=== PATIENT | female | born 2000 | race Hispanic/Latino ===

== ENCOUNTER 2021-08-05 13:15 | Day surgery (SDC) | payer OTHER ==
[2021-08-05 13:48] VITALS: BMI 35.8
== END 2021-08-05 17:53 | disposition home or self-care (01) ==
LOC: CSHLD/OP 13:15
PROVIDERS: ATTEND Family Medicine
DX: O36.5930 Maternal care for other known or suspected poor fetal growth, third trimester, not applicable or unspecified (principal); Z3A.35 35 weeks gestation of pregnancy
CPT/HCPCS: 76815; 76819

== ENCOUNTER 2021-08-23 14:53 | Outpatient (CLI) | payer OTHER ==
[2021-08-24 11:36] LABS: SARS-CoV-2 PCR by NAA Not Detected (NotDetected)
== END 2021-08-23 14:54 | disposition home or self-care (01) ==
LOC: CSHLAB 14:53
PROVIDERS: ATTEND Family Medicine
DX: Z20.822 Contact with and (suspected) exposure to COVID-19 (principal)
CPT/HCPCS: U0003; U0005

== ENCOUNTER 2021-08-25 11:38 | Inpatient (IN) | payer OTHER ==
[2021-08-26 01:27] VITALS: BMI 35.8
[2021-08-26] MEDS ORDERED: Misoprostol 100 MCG TAB ONE (02:04)
[2021-08-26] MEDS ORDERED: Acetaminophen 500 MG TAB PO PRN (02:29)
[2021-08-26] MEDS ORDERED: Carboprost 250 MCG/ML AMP IM PRN (02:29)
[2021-08-26] MEDS ORDERED: NS w/ Oxytocin 30 units 500 ML IV SCH ×2 (02:29)
[2021-08-26] MEDS ORDERED: hydrALAZINE 20 MG/ML VIAL SLOW IVP PRN (02:29)
[2021-08-26] MEDS ORDERED: Methylergonovine 0.2 MG/ML VIAL IM PRN (02:29)
[2021-08-26] MEDS ORDERED: NS w/ Oxytocin 30 units 500 ML IVPB SCH (02:29)
[2021-08-26] MEDS ORDERED: Lidocaine 1% (PF) 30 ML VIAL SC PRN (02:29)
[2021-08-26] MEDS ORDERED: Ondansetron PF 4 MG/2 ML Vial IVP PRN ×3 (02:29→23:54)
[2021-08-26] MEDS ORDERED: Promethazine HCl 25 MG/ML VIAL IM PRN ×3 (02:29→23:54)
[2021-08-26] MEDS ORDERED: Diphenoxylate HCl/Atropine Tablet PO PRN (02:29)
[2021-08-26] MEDS ORDERED: HYDROcodone/Acetaminophen 5/325 mg Tablet PO PRN (02:29)
[2021-08-26] MEDS ORDERED: Lactated Ringer's 1,000 ML IV SCH (02:29)
[2021-08-26] MEDS ORDERED: Misoprostol 200 MCG TAB PR PRN (02:29)
[2021-08-26] MEDS ORDERED: Ibuprofen 800 MG TAB PO PRN (02:29)
[2021-08-26] MEDS ORDERED: Penicillin G Potassium 5 MILL.UNITS VIAL ONE (03:15)
[2021-08-26 03:25] LABS: Hemoglobin 11.5 g/dL (12.0-15.5); Mean Corpuscular HGB CONC 32.4 g/dL (32.0-36.0); Mean Corpuscular Hemoglobin 30.2 pg (27.0-33.0); Mean Corpuscular Volume 93.2 fl (81.6-98.3); Mean Platelet Volume 10.2 fl (7.4-10.4); Platelet Count 350 10x3/uL (150-450); RBC Distribution Width 14.5 % (11.5-14.5); Red Blood Cell (RBC) Count 3.81 10x6/uL (3.90-5.03); White Blood Cell (WBC) Count 12.6 10x3/uL (3.5-10.5)
[2021-08-26 03:50] LABS: Hep B Surf Ag Non-Reactive S/CO (NonReactive); Syphilis Antibody Nonreactive (Nonreactive); Syphilis Antibody Index 0.03 S/CO (<1.00 Non-Reactive)
[2021-08-26 03:54] LABS: HBSAg Index 0.14 S/CO (0-0.99)
[2021-08-26] MEDS ORDERED: Penicillin G Potassium 5 MILL.UNITS in Sodium Chloride 0.9% 100 ML IVPB SCH (04:00)
[2021-08-26] MEDS: Penicillin G 2.5 MILL.units 2.5 MILL.UNITS in Premix Bag 1 BAG IVPB SCH ×4 (08:17→20:55)
[2021-08-26] MEDS: Butorphanol Tartrate 1 MG/ML VIAL SLOW IVP PRN ×2 (17:23→19:30)
[2021-08-26] MEDS ORDERED: Fentanyl 2 mcg/Bup 0.1% Cadd 100 ML ONE (20:02)
[2021-08-26] MEDS ORDERED: diphenhydrAMINE 50 MG/ML VIAL IVP PRN ×2 (20:56→23:54)
[2021-08-26] MEDS ORDERED: Hydrocerin (Eucerin) Cream 120 gm Jar TOP PRN ×2 (20:56→23:54)
[2021-08-26] MEDS ORDERED: Lactated Ringer's 500 ML IV PRN (20:56)
[2021-08-26] MEDS ORDERED: Acetaminophen 325 MG TAB PO PRN (20:56)
[2021-08-26] MEDS ORDERED: ePHEDrine Sulfate 50 MG/10 ML VIAL SLOW IVP PRN (20:56)
[2021-08-26] MEDS ORDERED: Naloxone HCl 0.4 mg/ml Vial IVP PRN ×4 (20:56→23:54)
[2021-08-26] MEDS ORDERED: Fentanyl 2 mcg/Bupivacaine 0.1% Cassette 100 ML EPIDURAL SCH (21:00)
[2021-08-26] MEDS ORDERED: Communication Order-Pharmacy FS SCH ×2 (21:00→23:45)
[2021-08-26] MEDS ORDERED: Azithromycin 500 MG VIAL ONE (23:22)
[2021-08-26] MEDS ORDERED: ceFAZolin 2 GM/Dextrose 50 ML IVPB ONE (23:22)
[2021-08-26] MEDS ORDERED: Oxytocin 10 UNITS/ML VIAL ONE (23:28)
[2021-08-26] MEDS ORDERED: Morphine PF 10 MG/10 ML VIAL ONE (23:28)
[2021-08-26] MEDS ORDERED: PHENYLEPHRINE-NS 100 MCG/ML 10 ML SYRINGE ONE (23:28)
[2021-08-26] MEDS ORDERED: Famotidine/PF 20 mg/2ml Vial SLOW IVP PRN (23:36)
[2021-08-26] MEDS ORDERED: Bicitra 30 ML UDCUP PO PRN (23:36)
[2021-08-26] MEDS ORDERED: ceFAZolin 2 GM/Dextrose 50 ML 2 GM in Premix Bag 1 BAG IVPB SCH (23:45)
[2021-08-26] MEDS ORDERED: Azithromycin 500 MG in Sodium Chloride 0.9% 250 ML 250 ML IVPB SCH (23:45)
[2021-08-26] MEDS ORDERED: Ketorolac Tromethamine 30 MG/ML VIAL IVP SCH (23:45)
[2021-08-26] MEDS ORDERED: Misoprostol 200 MCG TAB ONE ×2 (23:51→23:55)
[2021-08-26] MEDS ORDERED: Methylergonovine 0.2 MG/ML VIAL ONE ×2 (23:51→23:55)
[2021-08-26] MEDS ORDERED: Carboprost 250 MCG/ML AMP ONE (23:53)
[2021-08-26] MEDS ORDERED: Ondansetron PF 4 MG/2 ML Vial ONE (23:54)
[2021-08-26] MEDS ORDERED: Naloxone HCl 0.4 mg/ml Vial IV PRN (23:54)
[2021-08-26] MEDS ORDERED: Ketorolac Tromethamine 30 MG/ML VIAL IVP PRN (23:54)
[2021-08-26] MEDS ORDERED: Promethazine HCl 25 MG SUPP PR PRN (23:54)
[2021-08-26] MEDS ORDERED: Meperidine HCl/PF 25 MG/ML VIAL SLOW IVP PRN (23:55)
[2021-08-26] MEDS ORDERED: Fentanyl 100 MCG/2 ML VIAL SLOW IVP PRN (23:55)
[2021-08-26] MEDS ORDERED: Ondansetron HCl/PF 4 MG/2 ML Vial IVP PRN (23:55)
[2021-08-26] MEDS ORDERED: Fentanyl 100 MCG/2 ML VIAL ONE (23:59)
[2021-08-27] MEDS ORDERED: Fentanyl 100 MCG/2 ML VIAL ONE (00:02)
[2021-08-27] MEDS ORDERED: diphenhydrAMINE 25 MG CAP PO PRN (03:29)
[2021-08-27] MEDS ORDERED: Boostrix 0.5 ML (Tdap) VIAL IM ONE (03:29)
[2021-08-27] MEDS ORDERED: hydrALAZINE 20 MG/ML VIAL SLOW IVP PRN (03:29)
[2021-08-27] MEDS ORDERED: Ondansetron PF 4 MG/2 ML Vial IVP PRN (03:29)
[2021-08-27] MEDS ORDERED: Simethicone Chewable 80 MG TAB PO PRN (03:29)
[2021-08-27] MEDS ORDERED: Lanolin Ointment 7 GM TUBE TOP PRN (03:29)
[2021-08-27] MEDS ORDERED: NS w/ Oxytocin 30 units 500 ML IV SCH (03:29)
[2021-08-27] MEDS ORDERED: Bisacodyl 10 MG SUPP PR PRN (03:29)
[2021-08-27] MEDS ORDERED: Promethazine HCl 25 MG/ML VIAL IM PRN (03:29)
[2021-08-27] MEDS: Misoprostol 100 MCG TAB VAG SCH ×2 (05:38→05:39)
[2021-08-27] MEDS: Ketorolac Tromethamine 30 MG/ML VIAL IVP SCH ×4 (05:47→23:34)
[2021-08-27 06:37] LABS: Hemoglobin 10.3 g/dL (12.0-15.5); Mean Corpuscular HGB CONC 31.2 g/dL (32.0-36.0); Mean Corpuscular Hemoglobin 29.8 pg (27.0-33.0); Mean Corpuscular Volume 95.4 fl (81.6-98.3); Mean Platelet Volume 10.3 fl (7.4-10.4); Platelet Count 268 10x3/uL (150-450); RBC Distribution Width 14.4 % (11.5-14.5); Red Blood Cell (RBC) Count 3.46 10x6/uL (3.90-5.03); White Blood Cell (WBC) Count 11.1 10x3/uL (3.5-10.5)
[2021-08-27] MEDS ORDERED: Carboprost 250 MCG/ML AMP ONE (06:43)
[2021-08-27] MEDS: Docusate 100 MG CAP PO SCH ×2 (08:33→21:24)
[2021-08-27] MEDS: Prenatal Vitamin 1 TAB PO SCH (08:33)
[2021-08-27] MEDS: Ferrous Sulfate 325 MG TAB PO SCH (08:46)
[2021-08-27] MEDS ORDERED: HYDROcodone/Acetaminophen 5/325 mg Tablet PO PRN (11:45)
[2021-08-27] MEDS ORDERED: Meperidine HCl/PF 25 MG/ML VIAL IM PRN (11:45)
[2021-08-28] MEDS: Ferrous Sulfate 325 MG TAB PO SCH ×2 (03:38→09:36)
[2021-08-28] MEDS: Ibuprofen 800 MG TAB PO SCH ×3 (05:26→21:04)
[2021-08-28] MEDS: Docusate 100 MG CAP PO SCH ×2 (09:38→19:19)
[2021-08-28] MEDS: Prenatal Vitamin 1 TAB PO SCH (09:38)
[2021-08-28] MEDS: HYDROcodone/Acetaminophen 5/325 mg Tablet PO PRN (19:19)
[2021-08-28 20:31] VITALS: BP 118/79; TEMP 98.6
[2021-08-29] MEDS: Ferrous Sulfate 325 MG TAB PO SCH ×2 (01:09→09:21)
[2021-08-29] MEDS: Ibuprofen 800 MG TAB PO SCH ×2 (05:54→12:26)
[2021-08-29] MEDS: HYDROcodone/Acetaminophen 5/325 mg Tablet PO PRN (09:21)
[2021-08-29] MEDS: Docusate 100 MG CAP PO SCH (09:21)
[2021-08-29] MEDS: Prenatal Vitamin 1 TAB PO SCH (12:30)
== END 2021-08-29 14:30 | disposition home or self-care (01) | DRG 788 ==
LOC: CSHLD 08-26 00:47 → CSHPP 08-27 02:57
PROVIDERS: ADMIT Family Medicine; ATTEND Family Medicine
PROC: 10907ZC Drainage of Amniotic Fluid, Therapeutic from Products of Conception, Via Natural or Artificial Opening (ICD-10-PCS; 2021-08-26)
PROC: 3E0DXGC Introduction of Other Therapeutic Substance into Mouth and Pharynx, External Approach (ICD-10-PCS; 2021-08-26)
PROC: 10D00Z1 Extraction of Products of Conception, Low, Open Approach (ICD-10-PCS; principal; 2021-08-27)
DX: O99.824 Streptococcus B carrier state complicating childbirth (principal); Z37.0 Single live birth; Z3A.40 40 weeks gestation of pregnancy; O62.1 Secondary uterine inertia; O32.3XX0 Maternal care for face, brow and chin presentation, not applicable or unspecified
CPT/HCPCS: 36415; 51702; 85027; 86762; 86780; 86850; 86900; 86901; 87340; J0595; J1885; J2210; J2274; J2405; J2540; J2590; J3010; J3490; J7120

== ENCOUNTER 2022-04-14 20:20 | Emergency (ER) | payer OTHER ==
[2022-04-14] MEDS ORDERED: Mag-Al Plus 1200 MG/1200 MG/120 MG/30 ML UDCUP ONE (22:17)
[2022-04-14] MEDS ORDERED: Lidocaine Viscous Sol 2% 15 ml UD Cup ONE (22:17)
== END 2022-04-15 | disposition home or self-care (01) ==
LOC: CSHERS 20:20
DX: K20.90 Esophagitis, unspecified without bleeding (principal); R07.89 Other chest pain; E78.5 Hyperlipidemia, unspecified
CPT/HCPCS: 71045; 93005